=== PATIENT | female | born 1955 | race Caucasian/White ===

== ENCOUNTER 2019-03-23 00:56 | Emergency (ER) | payer OTHER ==
[~2019-03-23] VITALS: Ht 180.3 cm; Wt 155.0 kg
[2019-03-23] MEDS ORDERED: ACETAMINOPHEN 500 MG TAB PO STA (01:36)
[2019-03-23] MEDS ORDERED: FLUT9.9S NASAL (01:37)
[2019-03-23] MEDS ORDERED: AMOX1TAB10 PO (01:37)
[2019-03-23 01:40] VITALS: Ht 180.3 cm; Wt 155.0 kg
--- NOTE | 2019-03-23 01:41 | ERD ---
ER Documentation Chief Complaint Chief Complaint Patient has sinus congestion for 3 weeks HPI 64-year-old female history of morbid obesity, chronic left knee pain who is bedridden. The patient presents because of 3 weeks of nasal congestion and sinusitis. The patient states that she was started with a cough medication and doxycycline without improvement. The patient has had approximate 3 days of antibiotics. Patient denies any fevers or chills but has persistent nasal congestion that is bothering her. She called 911 for evaluation this evening. She denies any fevers or difficulty breathing. Symptoms are moderate currently. ROS All systems reviewed and are negative except as per history of present illness. Medications Home Meds Active Scripts Fluticasone Propionate (Flonase Allergy Relief) 9.9 Ml Lester.susp, 1 SPRAY NASAL BID for 10 Days, #1 BOTTLE TO EACH NOSTRIL Prov:KATEY MARIN MD 03/23/19 Amoxicillin/Potassium Clav (Amox-Clav 875-125 mg Tablet) 875-125 mg Tab, 1 TAB PO BID for 10 Days, #20 TAB Prov:KATEY MARIN MD 03/23/19 FmHx Family History: No diabetes Physical Exam Vitals Vital Signs Date Temp Pulse Resp B/P (MAP) Pulse Ox O2 O2 Flow FiO2 Time Delivery Rate 03/23/19 98.7 89 19 145/65 100 01:40 (91) Physical Exam General: Well developed, well nourished, no acute distress Head: Normocephalic, atraumatic. Eyes: EOM intact ENT: Moist mucous membranes, nasal congestion Neck: Full ROM Respiratory: No respiratory distress Cardiovascular: Well perfused distally Abdominal: Nondistended : Deferred MSK: No edema, no unilateral swelling Neurologic: Alert and oriented, moving all extremities, bedridden Skin: No rash Psych: Normal mood Results 24 hrs Current Medications Medications Dose Sig/Neema Start Time Status Last (Trade) Ordered Route PRN Stop Time Admin Dose Reason Admin 1,000 mg ONCE STAT 03/23/19 DC Acetaminophen PO 01:36 (Tylenol 03/23/19 01:37 Tab) Procedures/MDM Patient has 3 weeks of sinus congestion is likely consistent with sinusitis. Doxycycline may be appropriate but I will transition to Augmentin. The patient will need Flonase. Patient is a [employer] member and should be following up with research administrator at their facility. Patient has no signs or symptoms concerning for systemic illness. She is otherwise well-appearing. She has chronic knee pain and fibromyalgia that is unchanged currently. Patient given Tylenol. She can be safely discharged. The patient does not have an identifiable emergent medical condition that warrants inpatient hospitalization at this time. The patient is deemed safe for discharge with outpatient follow-up. We discussed follow up with the patient's primary care doctor within 24 to 48 hours as needed. We also discussed return to the emergency room for worsening symptoms or worsening condition. Outpatient referral: ENT at [facility] Discharge Medications: Flonase, Augmentin Departure Diagnosis: Primary Impression: Sinusitis Sinusitis location: unspecified location Chronicity: acute Recurrence: non-recurrent Qualified Codes: J01.90 - Acute sinusitis, unspecified Additional Impression: Morbid obesity Condition: Stable Patient Instructions: Sinusitis, Abx Tx Referrals: COMMUNITY CLINICS YOU HAVE RECEIVED A MEDICAL SCREENING EXAM AND THE RESULTS INDICATE THAT YOU DO NOT HAVE A CONDITION THAT REQUIRES URGENT TREATMENT IN THE EMERGENCY DEPARTMENT. FURTHER EVALUATION AND TREATMENT OF YOUR CONDITION CAN WAIT UNTIL YOU ARE SEEN IN YOUR DOCTORS OFFICE WITHIN THE NEXT 1-2 DAYS. IT IS YOUR RESPONSIBILITY TO MAKE AN APPOINTMENT FOR [facility]. IF YOU HAVE A PRIMARY DOCTOR --you should call your primary doctor and schedule an appointment IF YOU DO NOT HAVE A PRIMARY DOCTOR YOU CAN CALL OUR PHYSICIAN REFERRAL HOTLINE AT IF YOU CAN NOT AFFORD TO SEE A PHYSICIAN YOU CAN CHOSE FROM THE FOLLOWING [facility] CL[facility]ICS [facility] [address] [facility]. [facility] [address] [facility] [facility] [address] [facility] [address] [facility] [address] [facility]. [facility]. [address] [facility] YOU HAVE RECEIVED A MEDICAL SCREENING EXAM AND THE RESULTS INDICATE THAT YOU DO NOT HAVE A CONDITION THAT REQUIRES URGENT TREATMENT IN THE EMERGENCY DEPARTMENT. FURTHER EVALUATION AND TREATMENT OF YOUR CONDITION CAN WAIT UNTIL YOU ARE SEEN IN YOUR DOCTORS OFFICE WITHIN THE NEXT 1-2 DAYS. IT IS YOUR RESPONSIBILITY TO MAKE AN APPOINTMENT FOR [facility]-UP CARE. IF YOU HAVE A PRIMARY DOCTOR --you should call your primary doctor and schedule and appointment IF YOU DO NOT HAVE A PRIMARY DOCTOR YOU CAN CALL OUR PHYSICIAN REFERRAL HOTLINE AT . IF YOU CAN NOT AFFORD TO SEE A PHYSICIAN YOU CAN CHOSE FROM THE FOLLOWING [facility]: [facility] [address] [place] [address] [facility] [address] [place] [address] [facility] + [facility] [address] [place] [address] Additional Instructions: Follow-up with your nose and throat specialist at [facility] KATEY MARIN MD Mar 23, 2019 01:41
[2019-03-23 03:55] VITALS: BP 163/75; PULSE 75; RESP 18
== END 2019-03-23 04:04 | disposition home or self-care (01) ==
LOC: E/R 00:56
DX: J01.90 Acute sinusitis, unspecified (principal); R40.2142 Coma scale, eyes open, spontaneous, at arrival to emergency department; R40.2362 Coma scale, best motor response, obeys commands, at arrival to emergency department; R40.2252 Coma scale, best verbal response, oriented, at arrival to emergency department; E66.01 Morbid (severe) obesity due to excess calories; Z68.42 Body mass index [BMI] 45.0-49.9, adult
CPT/HCPCS: 99283